=== PATIENT | female | born 1965 | race Caucasian/White ===

== ENCOUNTER 2025-02-08 12:59 | Inpatient (IN) | payer OTHER ==
[~2025-02-08] VITALS: Ht 160 cm; Wt 120.4 kg
[2025-02-08] MEDS ORDERED: 0.9% SODIUM CHLORIDE 10 ML SYRINGE IVP PRN (13:15)
[2025-02-08 13:40] LABS: BASOPHILS % (AUTO) 0.9 % (0.0-2.0); EOSINOPHILS % (AUTO) 4.3 % (1.0-6.0); HEMATOCRIT 34.8 % (36-46); HEMOGLOBIN 11.2 g/dL (12.0-16.0); LYMPHOCYTES % (AUTO) 22.4 % (22.0-44.0); MEAN CORPUSCULAR HEMOGLOBIN 28.4 pg (26.0-34.0); MEAN CORPUSCULAR HGB CONC 32.3 G/dL (31.0-37.0); MEAN CORPUSCULAR VOLUME 88 fL (80-100); MONOCYTES # (AUTO) 0.6 K/uL (0.1-1.0); MONOCYTES % (AUTO) 6.5 % (2.0-9.0); NEUTROPHILS # (AUTO) 5.7 K/uL (1.8-7.7); NEUTROPHILS % (AUTO) 65.9 % (40.0-70.0); PLATELET COUNT (AUTO) 420 K/uL (150-450); RED BLOOD CELL COUNT(AUTO) 3.95 MIL/uL (4.00-5.20); RED CELL DISTRIBUTION WIDTH 15.3 % (11.5-14.5); WHITE BLOOD COUNT (AUTO) 8.7 K/uL (4.5-11.0)
[2025-02-08 13:47] LABS: ANION GAP 7 mmol/L (8-16); CALCIUM, TOTAL 9.1 mg/dL (8.8-10.5); CARBON DIOXIDE 30 mmol/L (22-29); CHLORIDE 105 mmol/L (98-107); CREATININE 0.66 mg/dL (0.60-1.30); GLOMERULAR FILTR. RATE CALC > 60 mL/min (>60); GLUCOSE,RANDOM 119 mg/dL (70-110); POTASSIUM 3.8 mmol/L (3.5-5.1); SODIUM SERUM 142 mmol/L (136-145); UREA NITROGEN, BLOOD 11 mg/dL (7-18)
[2025-02-08 13:52] LABS: ALBUMIN 2.7 g/dL (3.4-5.0); BILIRUBIN,DIRECT 0.1 mg/dL (0.00-0.20); BILIRUBIN,TOTAL 0.3 mg/dL (0.1-1.0); TOTAL PROTEIN, SERUM 7.9 g/dL (6.4-8.2)
[2025-02-08 13:54] LABS: LACTIC ACID 1.7 mmol/L (0.4-2.0); TROPONIN I-HIGH SENSITIVITY 9 ng/L (<51)
[2025-02-08 13:58] LABS: B-TYPE NATRIURETIC PEPTIDE 20 pg/mL (0-100)
[2025-02-08 14:05] LABS: PROTHROMBIN TIME 10.2 SEC (9.4-11.6)
[2025-02-08] MEDS: VANCOMYCIN 1.75GM/WATER(PEG) 350 ML IV ONE (14:15)
[2025-02-08] MEDS: SODIUM CHLORIDE 0.9% 1,800 ML IV ONE (14:15)
[2025-02-08] MEDS: *CLINICAL-MEROPENEM DOSING CLINICAL ONE (15:15)
[2025-02-08] MEDS ORDERED: ZOLPIDEM TARTRATE 5 MG TABLET PO PRN (15:15)
[2025-02-08] MEDS ORDERED: MAGNESIUM HYDROXIDE SUSPENSION 30 ML UDCUP PO PRN (15:15)
[2025-02-08] MEDS ORDERED: ONDANSETRON HCL 4 MG/2 ML VIAL IVP PRN (15:15)
[2025-02-08] MEDS: HEPARIN SODIUM,PORCINE 5,000 UNITS/ML VIAL SQ SCH (16:00)
[2025-02-08] MEDS: MEROPENEM 1 GM in SODIUM CHLORIDE 0.9% 50 ML IV ONE (16:24)
[2025-02-08] MEDS: FUROSEMIDE 20 MG TABLET PO SCH (21:04)
[2025-02-08] MEDS: DOCUSATE SODIUM 100 MG CAPSULE PO SCH (21:04)
[2025-02-08] MEDS ORDERED: SODIUM CHLORIDE 0.9% 250 ML IV ONE (23:07)
[2025-02-08] MEDS: MEROPENEM 1 GM in SODIUM CHLORIDE 0.9% 50 ML IV SCH (23:29)
[2025-02-08 23:30] VITALS: BP 172/100; PULSE 83; RESP 20; TEMP 98.6; O2SAT 98
[2025-02-08] MEDS: PROPRANOLOL HCL 20 MG TABLET PO SCH (23:30)
[2025-02-09 00:34] LABS: APPEARANCE,URINE CLEAR (CLEAR); BILIRUBIN,URINE NEGATIVE (NEGATIVE); COLOR,URINE LIGHT YELLOW (YELLOW); GLUCOSE, URINE (UA) NEGATIVE (NEGATIVE); KETONES,URINE NEGATIVE (NEGATIVE); LEUKOCYTE ESTERASE ,URINE LARGE (NEGATIVE); OCCULT BLOOD,URINE MODERATE (NEGATIVE); PH,URINE 5.5 (5.0-8.0); PROTEIN,URINE NEGATIVE (NEGATIVE); SPECIFIC GRAVITIY, URINE 1.023 (1.003-1.030); UROBILINOGEN,URINE <=1.0 mg/dL (<=1.0)
[2025-02-09 00:58] LABS: BACTERIA,URINE Few /HPF (None Seen); NITRATE,URINE NEGATIVE (NEGATIVE); SQUAMOUS EPITHELIAL CELL,UR Few /LPF (None Seen)
[2025-02-09 04:35] VITALS: BP 154/104; PULSE 73; RESP 20; TEMP 98.4; O2SAT 97
[2025-02-09] MEDS: MULTIVITAMINS WITH MINERALS, THERAPEUTIC TABLET PO SCH (10:46)
[2025-02-09] MEDS: FAMOTIDINE 20 MG TABLET PO SCH (10:46)
[2025-02-09 10:48] VITALS: BP 154/78; PULSE 70; RESP 18; TEMP 98.6; O2SAT 98
[2025-02-09] MEDS: ACETAMINOPHEN 325 MG TABLET PO PRN (10:48)
[2025-02-09 16:33] VITALS: BP 147/60; PULSE 60; RESP 18; TEMP 97.7; O2SAT 99
[2025-02-09] MEDS ORDERED: SODIUM CHLORIDE 0.9% 500 ML IV ONE (17:23)
[2025-02-09] MEDS: VANCOMYCIN 1.5 GM/WATER(PEG) 300 ML IV ONE (18:35)
[2025-02-09 20:09] VITALS: BP 147/85; PULSE 67; RESP 20; TEMP 97.9; O2SAT 97
[2025-02-09] MEDS: VANCOMYCIN 1GM/WATER(PEG/NADA) 200 ML IV SCH (23:08)
[2025-02-10 04:33] VITALS: BP 179/68; PULSE 88; RESP 20; TEMP 97.5; O2SAT 95
[2025-02-10 07:40] LABS: BASOPHILS % (AUTO) 1.2 % (0.0-2.0); EOSINOPHILS % (AUTO) 5.7 % (1.0-6.0); HEMATOCRIT 33.7 % (36-46); LYMPHOCYTES # (AUTO) 1.6 K/uL (1.0-4.8); LYMPHOCYTES % (AUTO) 21.6 % (22.0-44.0); MEAN CORPUSCULAR HEMOGLOBIN 28.4 pg (26.0-34.0); MEAN CORPUSCULAR HGB CONC 32.5 G/dL (31.0-37.0); MEAN CORPUSCULAR VOLUME 88 fL (80-100); MONOCYTES # (AUTO) 0.5 K/uL (0.1-1.0); MONOCYTES % (AUTO) 7.1 % (2.0-9.0); NEUTROPHILS # (AUTO) 4.9 K/uL (1.8-7.7); NEUTROPHILS % (AUTO) 64.4 % (40.0-70.0); PLATELET COUNT (AUTO) 405 K/uL (150-450); RED BLOOD CELL COUNT(AUTO) 3.85 MIL/uL (4.00-5.20); RED CELL DISTRIBUTION WIDTH 15.5 % (11.5-14.5); WHITE BLOOD COUNT (AUTO) 7.6 K/uL (4.5-11.0)
[2025-02-10 07:53] LABS: ANION GAP 8 mmol/L (8-16); C-REACTIVE PROTEIN QUANT 2.27 mg/dL (0.00-0.30); CARBON DIOXIDE 29 mmol/L (22-29); CHLORIDE 101 mmol/L (98-107); CREATININE 0.62 mg/dL (0.60-1.30); GLOMERULAR FILTR. RATE CALC > 60 mL/min (>60); GLUCOSE,RANDOM 130 mg/dL (70-110); POTASSIUM 4.2 mmol/L (3.5-5.1); SODIUM SERUM 138 mmol/L (136-145); UREA NITROGEN, BLOOD 21 mg/dL (7-18)
[2025-02-10 08:41] VITALS: BP 190/96; PULSE 65; RESP 18; TEMP 97.7; O2SAT 99
[2025-02-10] MEDS ORDERED: IOHEXOL 350 MG/ML 100 ML VIAL ONE (15:56)
[2025-02-10] MEDS ORDERED: SODIUM CHLORIDE 0.9% 100 ML ONE (15:56)
[2025-02-10 16:38] VITALS: BP 144/64; PULSE 73; RESP 20; TEMP 98.1; O2SAT 96
[2025-02-10 20:35] VITALS: BP 152/98; PULSE 68; RESP 20; TEMP 97.9; O2SAT 100
[2025-02-11] MEDS ORDERED: SODIUM CHLORIDE 0.9% 500 ML IV ONE (02:14)
[2025-02-11] MEDS: HEPARIN SODIUM,PORCINE 5,000 UNITS/ML VIAL SQ SCH (03:01)
[2025-02-11 04:46] VITALS: BP 158/92; PULSE 67; RESP 20; TEMP 97.7; O2SAT 96
[2025-02-11 08:00] VITALS: BP 156/101; PULSE 72; RESP 19; TEMP 97.7; O2SAT 99
[2025-02-11 08:27] LABS: ANION GAP 5 mmol/L (8-16); CARBON DIOXIDE 32 mmol/L (22-29); CHLORIDE 102 mmol/L (98-107); CREATININE 0.66 mg/dL (0.60-1.30); GLOMERULAR FILTR. RATE CALC > 60 mL/min (>60); GLUCOSE,RANDOM 125 mg/dL (70-110); POTASSIUM 4.1 mmol/L (3.5-5.1); SODIUM SERUM 139 mmol/L (136-145); UREA NITROGEN, BLOOD 21 mg/dL (7-18); VANCOMYCIN,RANDOM 29.3 mcg/mL (25.0-50.0)
[2025-02-11 19:54] VITALS: BP 152/91; PULSE 64; RESP 18; TEMP 97.5; O2SAT 100
[2025-02-11] MEDS: VANCOMYCIN 1GM/WATER(PEG/NADA) 200 ML IV SCH (20:45)
[2025-02-12 04:32] VITALS: BP 150/89; PULSE 68; RESP 18; TEMP 97.7; O2SAT 99
[2025-02-12 07:36] LABS: ANION GAP 5 mmol/L (8-16); C-REACTIVE PROTEIN QUANT 1.11 mg/dL (0.00-0.30); CALCIUM, TOTAL 9.3 mg/dL (8.8-10.5); CARBON DIOXIDE 34 mmol/L (22-29); CHLORIDE 105 mmol/L (98-107); CREATININE 0.61 mg/dL (0.60-1.30); GLOMERULAR FILTR. RATE CALC > 60 mL/min (>60); GLUCOSE,RANDOM 122 mg/dL (70-110); POTASSIUM 3.9 mmol/L (3.5-5.1); SODIUM SERUM 144 mmol/L (136-145); UREA NITROGEN, BLOOD 19 mg/dL (7-18)
[2025-02-12 08:20] VITALS: BP 155/102; PULSE 63; RESP 18; TEMP 97.9; O2SAT 98
[2025-02-12] MEDS ORDERED: MEDRONATE TC99M/UD<30 MCL ISOTOPE 1 EA INJ INJ ONE (10:40)
[2025-02-12 16:14] VITALS: BP 150/83; PULSE 68; RESP 18; TEMP 98; O2SAT 100
[2025-02-12 21:15] VITALS: BP 150/91; PULSE 75; RESP 18; TEMP 98.1; O2SAT 98
[2025-02-13 05:05] VITALS: BP 137/96; PULSE 70; RESP 20; TEMP 98.1; O2SAT 100
[2025-02-13 08:04] VITALS: BP 153/84; PULSE 67; RESP 18; TEMP 97.9; O2SAT 97
[2025-02-13 08:49] LABS: BASOPHILS % (AUTO) 1.4 % (0.0-2.0); EOSINOPHILS % (AUTO) 5.7 % (1.0-6.0); HEMATOCRIT 35.4 % (36-46); HEMOGLOBIN 11.6 g/dL (12.0-16.0); LYMPHOCYTES # (AUTO) 1.8 K/uL (1.0-4.8); LYMPHOCYTES % (AUTO) 26.4 % (22.0-44.0); MEAN CORPUSCULAR HEMOGLOBIN 28.4 pg (26.0-34.0); MEAN CORPUSCULAR HGB CONC 32.8 G/dL (31.0-37.0); MEAN CORPUSCULAR VOLUME 87 fL (80-100); MONOCYTES # (AUTO) 0.5 K/uL (0.1-1.0); NEUTROPHILS # (AUTO) 4.1 K/uL (1.8-7.7); NEUTROPHILS % (AUTO) 59.5 % (40.0-70.0); PLATELET COUNT (AUTO) 423 K/uL (150-450); RED BLOOD CELL COUNT(AUTO) 4.09 MIL/uL (4.00-5.20); RED CELL DISTRIBUTION WIDTH 15.6 % (11.5-14.5); WHITE BLOOD COUNT (AUTO) 6.9 K/uL (4.5-11.0)
[2025-02-13 09:01] LABS: ANION GAP 6 mmol/L (8-16); CARBON DIOXIDE 31 mmol/L (22-29); CHLORIDE 104 mmol/L (98-107); CREATININE 0.56 mg/dL (0.60-1.30); GLOMERULAR FILTR. RATE CALC > 60 mL/min (>60); GLUCOSE,RANDOM 128 mg/dL (70-110); POTASSIUM 3.7 mmol/L (3.5-5.1); SODIUM SERUM 141 mmol/L (136-145); UREA NITROGEN, BLOOD 23 mg/dL (7-18)
[2025-02-13 15:50] VITALS: BP 155/85; PULSE 66; RESP 18; TEMP 98.1; O2SAT 94
[2025-02-13] MEDS: AmLODIPine BESYLATE 10 MG TABLET PO ONE (18:08)
[2025-02-13 20:00] VITALS: BP 116/73; PULSE 68; RESP 15; TEMP 97.7; O2SAT 98
[2025-02-14 04:31] VITALS: BP 152/94; PULSE 68; RESP 18; TEMP 97.7; O2SAT 95
[2025-02-14] MEDS: AmLODIPine BESYLATE 10 MG TABLET PO SCH (07:50)
[2025-02-14 08:00] VITALS: BP 160/98; PULSE 71; RESP 18; TEMP 98.4; O2SAT 94
[2025-02-14 08:18] LABS: ANION GAP 9 mmol/L (8-16); CALCIUM, TOTAL 9.1 mg/dL (8.8-10.5); CARBON DIOXIDE 31 mmol/L (22-29); CHLORIDE 105 mmol/L (98-107); CREATININE 0.58 mg/dL (0.60-1.30); GLOMERULAR FILTR. RATE CALC > 60 mL/min (>60); GLUCOSE,RANDOM 132 mg/dL (70-110); POTASSIUM 3.9 mmol/L (3.5-5.1); SODIUM SERUM 145 mmol/L (136-145); UREA NITROGEN, BLOOD 21 mg/dL (7-18)
[2025-02-14 15:14] VITALS: BP 150/80; PULSE 67; RESP 18; TEMP 98.1; O2SAT 100
[2025-02-14 19:55] VITALS: BP 171/91; PULSE 66; RESP 18; TEMP 98.2; O2SAT 99
[2025-02-15 05:25] VITALS: BP 165/92; PULSE 65; RESP 18; TEMP 98.1; O2SAT 97
[2025-02-15 07:52] LABS: ALANINE AMINOTRANSFERASE 15 U/L (12-78); ALBUMIN 2.5 g/dL (3.4-5.0); ALKALINE PHOSPHATASE 100 U/L (46-116); ANION GAP 6 mmol/L (8-16); ASPARTATE AMINOTRANSFERASE 25 U/L (15-37); BILIRUBIN,TOTAL 0.4 mg/dL (0.1-1.0); CALCIUM, TOTAL 8.8 mg/dL (8.8-10.5); CARBON DIOXIDE 30 mmol/L (22-29); CHLORIDE 105 mmol/L (98-107); CREATININE 0.52 mg/dL (0.60-1.30); GLOMERULAR FILTR. RATE CALC > 60 mL/min (>60); GLUCOSE,RANDOM 117 mg/dL (70-110); POTASSIUM 3.7 mmol/L (3.5-5.1); SODIUM SERUM 141 mmol/L (136-145); TOTAL PROTEIN, SERUM 7.5 g/dL (6.4-8.2); UREA NITROGEN, BLOOD 18 mg/dL (7-18)
[2025-02-15 08:00] VITALS: BP 149/81; PULSE 70; RESP 18; TEMP 98.4; O2SAT 100
[2025-02-15] MEDS ORDERED: SODIUM CHLORIDE 0.9% 500 ML IV ONE (09:14)
[2025-02-15 15:35] VITALS: BP 140/84; PULSE 72; RESP 18; TEMP 98.2; O2SAT 98
[2025-02-15 17:46] LABS: C-REACTIVE PROTEIN QUANT 0.67 mg/dL (0.00-0.30)
[2025-02-15 19:45] VITALS: BP 135/75; PULSE 67; RESP 18; TEMP 98.1; O2SAT 98
[2025-02-16 04:10] VITALS: BP 140/81; PULSE 69; RESP 18; TEMP 97.9; O2SAT 96
[2025-02-16 07:46] LABS: ANION GAP 5 mmol/L (8-16); CALCIUM, TOTAL 9.2 mg/dL (8.8-10.5); CARBON DIOXIDE 32 mmol/L (22-29); CHLORIDE 106 mmol/L (98-107); CREATININE 0.48 mg/dL (0.60-1.30); GLOMERULAR FILTR. RATE CALC > 60 mL/min (>60); GLUCOSE,RANDOM 109 mg/dL (70-110); POTASSIUM 3.8 mmol/L (3.5-5.1); SODIUM SERUM 143 mmol/L (136-145); UREA NITROGEN, BLOOD 22 mg/dL (7-18)
[2025-02-16 07:53] VITALS: BP 133/83; PULSE 71; RESP 19; TEMP 97.3; O2SAT 96
[2025-02-16] MEDS ORDERED: INDIUM IN-111 OXYQUINOLINE/.5MCL ISOTOPE 1 EA INJ INJ ONE (14:20)
[2025-02-16 15:56] VITALS: BP 144/87; PULSE 65; RESP 20; TEMP 98.1; O2SAT 96
[2025-02-16 20:03] VITALS: BP 144/72; PULSE 67; RESP 19; TEMP 98; O2SAT 96
[2025-02-17 05:02] VITALS: BP 138/69; PULSE 68; RESP 18; TEMP 97.9; O2SAT 97
[2025-02-17 08:36] VITALS: BP 151/79; PULSE 70; RESP 19; TEMP 97.7; O2SAT 98
[2025-02-17] MEDS ORDERED: SODIUM CHLORIDE 0.9% 1,000 ML IV ONE (09:03)
[2025-02-17 09:05] LABS: ANION GAP 11 mmol/L (8-16); CALCIUM, TOTAL 8.9 mg/dL (8.8-10.5); CARBON DIOXIDE 27 mmol/L (22-29); CHLORIDE 103 mmol/L (98-107); CREATININE 0.67 mg/dL (0.60-1.30); GLOMERULAR FILTR. RATE CALC > 60 mL/min (>60); GLUCOSE,RANDOM 214 mg/dL (70-110); POTASSIUM 3.8 mmol/L (3.5-5.1); SODIUM SERUM 141 mmol/L (136-145); UREA NITROGEN, BLOOD 23 mg/dL (7-18); VANCOMYCIN,RANDOM 15.4 mcg/mL (25.0-50.0)
[2025-02-17 17:47] VITALS: BP 148/83; PULSE 74; RESP 20; TEMP 98.2; O2SAT 98
[2025-02-17 20:00] VITALS: BP 143/83; PULSE 76; RESP 18; TEMP 98.4; O2SAT 99
[2025-02-18 04:41] VITALS: BP 152/88; PULSE 69; RESP 18; TEMP 97.9; O2SAT 99
[2025-02-18 07:43] VITALS: BP 134/86; PULSE 71; RESP 19; TEMP 97.5; O2SAT 97
[2025-02-18 08:58] LABS: ANION GAP 7 mmol/L (8-16); CALCIUM, TOTAL 9.2 mg/dL (8.8-10.5); CARBON DIOXIDE 31 mmol/L (22-29); CHLORIDE 104 mmol/L (98-107); CREATININE 0.53 mg/dL (0.60-1.30); GLOMERULAR FILTR. RATE CALC > 60 mL/min (>60); GLUCOSE,RANDOM 126 mg/dL (70-110); POTASSIUM 3.7 mmol/L (3.5-5.1); SODIUM SERUM 142 mmol/L (136-145); UREA NITROGEN, BLOOD 24 mg/dL (7-18)
[2025-02-18] MEDS: HEPARIN SODIUM,PORCINE 5,000 UNITS/ML VIAL SQ SCH (16:34)
[2025-02-18 20:18] VITALS: BP 142/78; PULSE 69; RESP 18; TEMP 98.1; O2SAT 98
[2025-02-19 05:09] VITALS: BP 149/85; PULSE 72; RESP 18; TEMP 98.1; O2SAT 95
[2025-02-19 07:33] LABS: ANION GAP 8 mmol/L (8-16); CALCIUM, TOTAL 9.2 mg/dL (8.8-10.5); CARBON DIOXIDE 31 mmol/L (22-29); CHLORIDE 104 mmol/L (98-107); CREATININE 0.55 mg/dL (0.60-1.30); GLOMERULAR FILTR. RATE CALC > 60 mL/min (>60); GLUCOSE,RANDOM 124 mg/dL (70-110); POTASSIUM 3.9 mmol/L (3.5-5.1); SODIUM SERUM 143 mmol/L (136-145); UREA NITROGEN, BLOOD 26 mg/dL (7-18)
[2025-02-19 07:46] VITALS: BP 143/87; PULSE 73; RESP 20; TEMP 97.7; O2SAT 96
[2025-02-19 16:03] VITALS: BP 138/86; PULSE 70; RESP 20; TEMP 97.9; O2SAT 99
[2025-02-19 19:44] VITALS: BP 121/64; PULSE 74; RESP 19; TEMP 97.7; O2SAT 99
[2025-02-20 05:42] VITALS: BP 147/96; PULSE 73; RESP 20; TEMP 97.9; O2SAT 98
[2025-02-20 07:17] LABS: BASOPHILS % (AUTO) 0.3 % (0.0-2.0); EOSINOPHILS % (AUTO) 4.7 % (1.0-6.0); HEMATOCRIT 34.8 % (36-46); HEMOGLOBIN 11.4 g/dL (12.0-16.0); LYMPHOCYTES # (AUTO) 1.8 K/uL (1.0-4.8); LYMPHOCYTES % (AUTO) 22.4 % (22.0-44.0); MEAN CORPUSCULAR HEMOGLOBIN 28.1 pg (26.0-34.0); MEAN CORPUSCULAR HGB CONC 32.9 G/dL (31.0-37.0); MEAN CORPUSCULAR VOLUME 86 fL (80-100); MONOCYTES # (AUTO) 0.5 K/uL (0.1-1.0); MONOCYTES % (AUTO) 6.8 % (2.0-9.0); NEUTROPHILS # (AUTO) 5.2 K/uL (1.8-7.7); NEUTROPHILS % (AUTO) 65.8 % (40.0-70.0); PLATELET COUNT (AUTO) 344 K/uL (150-450); RED BLOOD CELL COUNT(AUTO) 4.07 MIL/uL (4.00-5.20); RED CELL DISTRIBUTION WIDTH 15.8 % (11.5-14.5); WHITE BLOOD COUNT (AUTO) 7.9 K/uL (4.5-11.0)
[2025-02-20 07:33] LABS: ALANINE AMINOTRANSFERASE 18 U/L (12-78); ALBUMIN 2.7 g/dL (3.4-5.0); ALKALINE PHOSPHATASE 113 U/L (46-116); ANION GAP 9 mmol/L (8-16); ASPARTATE AMINOTRANSFERASE 24 U/L (15-37); BILIRUBIN,TOTAL 0.4 mg/dL (0.1-1.0); CALCIUM, TOTAL 9.1 mg/dL (8.8-10.5); CARBON DIOXIDE 29 mmol/L (22-29); CHLORIDE 104 mmol/L (98-107); CREATININE 0.58 mg/dL (0.60-1.30); GLOMERULAR FILTR. RATE CALC > 60 mL/min (>60); GLUCOSE,RANDOM 116 mg/dL (70-110); POTASSIUM 3.8 mmol/L (3.5-5.1); SODIUM SERUM 142 mmol/L (136-145); TOTAL PROTEIN, SERUM 7.7 g/dL (6.4-8.2); UREA NITROGEN, BLOOD 23 mg/dL (7-18)
[2025-02-20 07:43] VITALS: BP 138/91; PULSE 71; RESP 20; TEMP 97.7; O2SAT 98
[2025-02-20 16:56] VITALS: BP 148/92; PULSE 60; RESP 18; TEMP 98.1; O2SAT 100
[2025-02-20 20:11] VITALS: BP 136/81; PULSE 73; RESP 20; TEMP 97.9; O2SAT 98
[2025-02-21 05:00] VITALS: BP 148/98; PULSE 80; RESP 20; TEMP 98.2; O2SAT 99
[2025-02-21 08:14] VITALS: BP 140/73; PULSE 77; RESP 18; TEMP 97.9; O2SAT 100
[2025-02-21 16:08] VITALS: BP 123/96; PULSE 74; RESP 18; TEMP 98.6; O2SAT 95
== END 2025-02-21 16:30 | DRG 349 ==
LOC: EMS 13:02 → EDH 15:06 → 4E 22:59
PROVIDERS: ADMIT Internal Medicine; ATTEND Internal Medicine
PROC: 05HY33Z Insertion of Infusion Device into Upper Vein, Percutaneous Approach (ICD-10-PCS; principal; 2025-02-14)
PROC: B54MZZA Ultrasonography of Right Upper Extremity Veins, Guidance (ICD-10-PCS; 2025-02-14)
DX: T84.623A Infection and inflammatory reaction due to internal fixation device of left tibia, initial encounter (principal); M86.172 Other acute osteomyelitis, left ankle and foot; I87.312 Chronic venous hypertension (idiopathic) with ulcer of left lower extremity; L03.116 Cellulitis of left lower limb; L97.329 Non-pressure chronic ulcer of left ankle with unspecified severity; I87.2 Venous insufficiency (chronic) (peripheral); I10 Essential (primary) hypertension; Z68.42 Body mass index [BMI] 45.0-49.9, adult; E66.01 Morbid (severe) obesity due to excess calories; M81.0 Age-related osteoporosis without current pathological fracture; D64.9 Anemia, unspecified; Z59.00 Homelessness unspecified; F41.9 Anxiety disorder, unspecified; Y83.8 Other surgical procedures as the cause of abnormal reaction of the patient, or of later complication, without mention of misadventure at the time of the procedure; Z91.199 Patient's noncompliance with other medical treatment and regimen due to unspecified reason; Y92.89 Other specified places as the place of occurrence of the external cause; Z91.148 Patient's other noncompliance with medication regimen for other reason; Z88.5 Allergy status to narcotic agent
CPT/HCPCS: 36245; 36569; 71045; 73701; 76937; 78315; 78806; 80048; 80053; 80076; 80202; 81001; 83605; 83880; 84145; 84484; 85025; 85610; 86140; 87040; 87070; 87086; 87186; 87205; 93005; 93925; 93970; 99285; A9503; A9547; G0378; J1644; J2185; J7030; J7040; J7050; 36415-L1; 36415-TC